=== PATIENT | female | born 2000 | race Caucasian/White ===

== ENCOUNTER 2019-01-24 14:25 | Emergency (ER) | payer BC ==
[2019-01-24 16:41] LABS: ABS Basophils 0.1 10^3/ul (0-0.2); ABS Eosinophils 0.2 10^3/ul (0-0.6); ABS Lymphocytes 1.5 10^3/ul (1.0-4.8); ABS Monocytes 0.5 10^3/ul (0-0.8); ABS Neutrophils 7.2 10^3/ul (1.5-7.7); Eosinophil % 2.4 %; Hematocrit 39 % (35-47); Hemoglobin 13.2 g/dL (12.0-16.0); Mean Corpuscular HGB Conc 34 g/dL (31-36); Mean Corpuscular Hemoglobin 29 pg (27-31); Mean Corpuscular Volume 85 fL (80-97); Mean Platelet Volume 7.5 fL (7.4-10.4); Platelet Count 375 10^3/uL (150-450); Red Blood Count 4.53 10^6 /uL (3.70-4.87); Red Cell Distribution Width 13 % (10-15); White Blood Count 9.5 10^3/uL (3.5-10.8)
[2019-01-24 16:51] LABS: ALT 13 U/L (7-52); AST 21 U/L (13-39); Albumin 4.2 g/dL (3.2-5.2); Albumin/Globulin Ratio 1.6 (1-3); Alkaline Phosphatase 65 U/L (34-104); Anion Gap 3 mmol/L (2-11); BUN/Creatinine Ratio 8.9 (8-20); Blood Urea Nitrogen 7 mg/dL (6-24); CO2 Carbon Dioxide 27 mmol/L (22-32); Calcium 10.1 mg/dL (8.6-10.3); Chloride 106 mmol/L (101-111); EGFR African American 112.3 (>60); EGFR Non-African American 92.8 (>60); Globulin 2.7 g/dL (2-4); Glucose 92 mg/dL (70-100); Potassium 4.3 mmol/L (3.5-5.0); Sodium 136 mmol/L (135-145); Total Protein 6.9 g/dL (6.4-8.9)
[2019-01-24 16:58] LABS: HCG Pregnancy < 0.60 mIU/mL
[2019-01-24] MEDS ORDERED: NS 0.9% 1000 ML** 1,000 ML IV ONE (17:00)
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
--- NOTE | 2019-01-24 19:35 | ED ---
Progress - Progress Note Progress Note: Pt is a signout from Dr. Jimenez at 1900 on 01/24/[address] a/p. - Results/Orders Results/Orders: CT a/p: Right ovarian hemorrhagic cyst versus endometrioma. Recommend US follow-up in 6- 12 weeks. ED physician has reviewed this report. Re-Evaluation - Re-Evaluation First Eval Comment: reviewed labs. aware cultures take [address] declined analgesia Second Eval Re-Evaluation Time: 18:58 Comment: Friend at bedside. drinking contrast. aware of Dr. Samano. no needs at this time Course/Dx - Diagnoses Provider Diagnoses: Hemorrhagic cyst of right ovary Discharge ED - Sign-Out/Discharge Documenting (check all that apply): Patient Departure, Receiving Sign-Out Receiving patient FROM: Mami Jimenez - Discharge Plan Condition: Stable Disposition: HOME [facility] - [facility] [Provider Group] Lucille Brunson MD [Medical Doctor] - Additional Instructions: You were seen in the emergency department for abdominal pain. Your CT scan showed a right ovarian hemorrhagic cyst versus endometrioma please follow up with [facility]. If any studies were not completed at the time of discharge you will be called with the relevant results. Please follow up with your primary care doctor in next 2-3 days and return to emergency department for worsening pain, fevers, inability to drink, or concerning symptoms. It was a pleasure taking care of you today. - Billing Disposition and Condition Condition: STABLE Disposition: Home - Attestation Statements Document Initiated by Rosaibe: Yes Documenting Scribe: hSantell Mcneill Provider For Whom Chetan is Documenting (Include Credential): Karen Samano MD. Scribe Attestation: I, Shantell Mcneill, scribed for Karen Samano MD. on 01/26/19 at 1045. Scribe Documentation Reviewed: Yes Provider Attestation: The documentation as recorded by the scribe, Shantell Mcneill accurately reflects the service I personally performed and the decisions made by me, Karen Samano MD. Status of Scribe Document: Viewed
[2019-01-24 20:14] LABS: Urine Appearance Clear; Urine Bacteria 1+ (Absent); Urine Bilirubin Negative (Negative); Urine Blood 1+ (Negative); Urine Color Straw; Urine Glucose Negative (Negative); Urine Ketones Negative (Negative); Urine Nitrite Negative (Negative); Urine Protein Negative (Negative); Urine Red Blood Cell Trace(0-2/hpf) (Absent); Urine Specific Gravity 1.003 (1.010-1.030); Urine Squamous Epithelial Cell Present (Absent); Urine Urobilinogen Negative (Negative); Urine White Blood Cell Absent (Absent)
[2019-01-24] MEDS ORDERED: Iohexol 300* (CONTRAST) 10 ML SDV IV ONE (21:15)
[2019-01-24 22:04] VITALS: BP 132/74
[2019-01-25 14:24] LABS: Chlamydia trachomatis NAA Negative (Negative); Neisseria gonorrhoeae (GC) NAA Negative (Negative)
== END 2019-01-24 21:59 | disposition home or self-care (01) ==
LOC: ED 14:25
DX: N83.201 Unspecified ovarian cyst, right side (principal); F32.9 Major depressive disorder, single episode, unspecified; Z79.899 Other long term (current) drug therapy; Z97.5 Presence of (intrauterine) contraceptive device
CPT/HCPCS: 36415; 74018; 74177; 80053; 81003; 81015; 83735; 84702; 85025; 87086; 87480; 87491; 87510; 87591; 96360; 96361; 99283; Q9967